=== PATIENT | female | born 1950 | race Caucasian/White ===

== ENCOUNTER 2021-07-13 12:43 | Emergency (ER) | payer OTHER, MEDICARE ==
[~2021-07-13] VITALS: Ht 160 cm; Wt 78.4 kg
--- NOTE | 2021-07-13 13:02 | ED.ADGEN ---
General Adult EDM: Chief Complaint: MECHANICAL FALL HPI: HPI: Patient is a 70 year old female coming in after a mechanical fall. Patient tripped while she was at a soccer field and struck her right forehead on concrete. Patient denies any loss of consciousness, does not take any blood thinners, denies any other injuries or neck pain. Last tetanus greater than 5 years Review of Systems: Review of Systems: All other systems within normal limits except for as noted in the HPI Current Medications: Current Medications Medications (Trade) Dose Ordered Sig/Pili Start Time Stop Time Status Last Admin Dose Admin Diphtheria/ Tetanus/Acell Pertussis (ADACEL TDap SYRINGE) 0.5 ml ONCE ONCE 07/13/21 13:45 07/13/21 13:46 DC 07/13/21 13:48 0.5 ML Allergies: Allergies: Allergies Coded Allergies Type Severity Reaction Last Updated Verified No Known Drug Allergies 09/20/15 No Physical Exam: PE: Constitutional: Well developed, well nourished, no acute distress, non-toxic appearance. [] HENT: Normocephalic, atraumatic, bilateral external ears normal, nose normal. [] Eyes: PERRLA, conjunctiva normal, no discharge. [] Neck: No rigidity, supple, no stridor. [] Cardiovascular: Regular rate and rhythm, brisk cap refill [] Lungs & Thorax: Non labored symmetric respirations, no tachypnea or respiratory distress [] Abdomen: Soft, nondistended. Skin: Warm, dry, no erythema, no rash. Small laceration to left congregation, no crepitus or to four [] Back: Unremarkable Extremities: No deformities, range of motion grossly intact, no lower extremity edema [] Neurologic: Alert and oriented X 3, no focal deficits noted. [] Psychologic: Affect normal, judgement normal, mood normal. [] Current Patient Data: Vital Signs: Vital Signs Date Time Temp Pulse Resp B/P (MAP) Pulse Ox O2 Delivery O2 Flow Rate FiO2 07/13/21 12:47 98.2 75 17 164/72 (102) 98 Room Air 98.2 EKG: EKG: [] Heart Score: C/O Chest Pain: No Risk Factors: Risk Factors: DM, Current or recent (<one month) smoker, HTN, HLP, family history of CAD, obesity. Risk Scores: Score 0 - 3: 2.5% MACE over next 6 weeks - Discharge Home Score 4 - 6: 20.3% MACE over next 6 weeks - Admit for Clinical Observation Score 7 - 10: 72.7% MACE over next 6 weeks - Early Invasive Strategies Radiology/Procedures: Radiology/Procedures: [facility] [address] [place] [address] IMAGING REPORT Signed PATIENT: SOTERO PATTERSON LACCOUNT: [id number] : 1950 LOCATION: ER AGE: 70 SEX: F EXAM STATUS: REG ER ORD. PHYSICIAN: LALITO SANTIAGO MD REASON: fall, right forehead contusion PROCEDURE: CT HEAD WO CONTRAST CT HEAD/BRAIN WO History: Reason: fall, right forehead contusion / Spl. Instructions: / History: Comparison: None. Technique: Noncontrast CT imaging was performed of the head. Exposure: One or more of the following individualized dose reduction techniques were utilized for this examination: 1. Automated exposure control 2. Adjustment of the mA and/or kV according to patient size 3. Use of iterative reconstruction technique. Findings: No intracranial hemorrhage. No mass effect. No hydrocephalus. Mild right supraorbital soft tissue swelling. Mild brain parenchymal volume loss. Moderate foci of decreased attenuation within the hemispheric white matter, most often due to chronic microvascular ischemia. Imaged orbits are unremarkable. Imaged paranasal sinuses and mastoid air cells are clear. No acute calvarial fracture. Impression: 1. No acute intracranial abnormality. Electronically signed by: Gautam Eckert DO (07/13/2021 1:26 PM) [facility] DICTATED and SIGNED BY: GAUTAM ECKERT DO DATE: 07/13/21 [id number] [] Impression: Superficial 1 cm laceration on right forehead just distal to eyebrow, shallow and well approximated, closed with Dermabond. Course & Med Decision Making: Course & Med Decision Making Pertinent Labs and Imaging studies reviewed. (See chart for details) [] Dragon Disclaimer: Dragon Disclaimer: This electronic medical record was generated, in whole or in part, using a voice recognition dictation system. Departure Departure Impression: Primary Impression: Fall Additional Impression: Laceration of forehead without complication Disposition: HOME / SELF CARE / HOMELESS Condition: STABLE Referrals: ZO BLACK MD (PCP) Patient Instructions: Tissue Adhesive Wound Care Problem Qualifiers LALITO SANTIAGO MD Jul 13, 2021 13:02
--- NOTE | 2021-07-13 13:28 | RAD ---
CT HEAD/BRAIN WO History: Reason: fall, right forehead contusion / Spl. Instructions: / History: Comparison: None. Technique: Noncontrast CT imaging was performed of the head. Exposure: One or more of the following individualized dose reduction techniques were utilized for thi s examination: 1. Automated exposure control 2. Adjustment of the mA and/or kV according to patient size 3. Use of iterative reconstruction technique. Findings: No intracranial hemorrhage. No mass effect. No hydrocephalus. Mild right supraorbital soft tissue swelling. Mild brain parenchymal volume loss. Moderate foci of decreased attenuation within the hemispheric whi te matter, most often due to chronic microvascular ischemia. Imaged orbits are unremarkable. Imaged paranasal sinuses and mastoid air cells are clear. No acute ca lvarial fracture. Impression: 1. No acute intracranial abnormality. Electronically signed by: Gautam Eckert DO (07/13/2021 1:26 PM) [facility]
[2021-07-13] MEDS ORDERED: DIPH,PERTUSS(ACELL),TET VAC/PF 0.5 ML SYRINGE. VAX IM ONE (13:45)
[2021-07-13 14:27] VITALS: BP 139/65
== END 2021-07-13 14:47 | disposition home or self-care (01) ==
LOC: ER 12:43
DX: S01.81XA Laceration without foreign body of other part of head, initial encounter (principal); W01.0XXA Fall on same level from slipping, tripping and stumbling without subsequent striking against object, initial encounter; Y93.89 Activity, other specified; Y92.89 Other specified places as the place of occurrence of the external cause; Y99.8 Other external cause status
CPT/HCPCS: 12011; 70450; 90471; 90715; 99284